=== PATIENT | male | born 1980 | race American Indian/Alaskan Native ===

== ENCOUNTER 2017-01-18 02:02 | Inpatient (IN) | payer OTHER ==
[2017-01-18 02:38] LABS: Basophils % (Auto) 0.5 % (0.0-1.8); Eosinophils % (Auto) 0.4 % (0.0-4.3); Hematocrit 41.2 % (35.5-45.6); Hemoglobin 13.6 gm/dl (11.8-15.2); Mean Corpuscular HGB Conc 33 % (32-34); Mean Corpuscular Hemoglobin 29 pg (28-32); Mean Corpuscular Volume 87 fl (84-94); Platelet Count 244 K/mm3 (140-440); Red Blood Count 4.75 M/mm3 (3.65-5.03); Red Cell Distribution Width 12.9 % (13.2-15.2); White Blood Count 14.9 K/mm3 (4.5-11.0)
[2017-01-18 03:00] LABS: Anion Gap 20 mmol/L; BUN/Creatinine Ratio 8.66; Blood Urea Nitrogen 13 mg/dL (9-20); Calcium 8.9 mg/dL (8.4-10.2); Carbon Dioxide 25 mmol/L (22-30); Chloride 100.2 mmol/L (98-107); Glucose 126 mg/dL (75-100); Potassium 4.2 mmol/L (3.6-5.0); Sodium 141 mmol/L (137-145)
[2017-01-18] MEDS ORDERED: NORMODYNE IV ONE ×2 (05:26→05:36)
[2017-01-18] MEDS ORDERED: PROVENTIL IH ONE (05:31)
[2017-01-18] MEDS ORDERED: LASIX IV ONE (05:46)
[2017-01-18] MEDS ORDERED: CATAPRES PO ONE (06:28)
--- NOTE | 2017-01-18 06:36 | Emergency Department Report ---
HPI - General Chief Complaint: Dyspnea/Respdistress Time Seen by Provider: 01/18/17 06:18 - HPI HPI: Chief complaint: Chest pain, headache, shortness of breath HPI: Patient is a 36-year-old -Malagasy male with a history of hypertension and congestive heart failure. Patient states he was admitted to [facility] 4 months ago was diagnosed with congestive heart failure. Patient states he had a cardiac catheterization at that time which he thinks was negative. Patient was put on numerous medications which he ran out of it after one month and when he tried to follow up at [place] he was unable to. Patient states 3 days ago began having chest tightness and a throbbing headache that will not go away. Patient also has swelling to his feet and some shortness of breath. Patient recently has had chills body aches and some fever but no productive cough Mode of arrival: private car Source: Patient Began: See above Duration: Continuous 3 days Context: See above Quality: Headache is throbbing and chest pain as tightness Severity: Moderate to severe Improved with: Headaches slightly better he rests his head down Worsened with: Is of breath is worse on exertion and laying flat Associated signs and symptoms: See above ED Past Medical Hx - Past Medical History Previous Medical History?: Yes Hx Hypertension: Yes Hx Congestive Heart Failure: Yes Hx Asthma: Yes - Surgical History Past Surgical History?: No - Social History Smoking Status: Current Every Day Smoker - Medications Home Medications: Home Medications Medication Instructions Recorded Confirmed Last Taken Type Amoxicillin [Trimox CAP] 500 mg PO BID #14 capsule 07/05/14 Unknown Rx Benzonatate [Tessalon Perle] 100 mg PO TID PRN #30 capsule 07/05/14 Unknown Rx Hydrochlorothiazide [Hctz] 25 mg PO QDAY #90 tablet 07/05/14 Unknown Rx amLODIPine [Norvasc] 5 mg PO DAILY #90 tab 07/05/14 Unknown Rx ED Review of Systems ROS: Stated complaint: SOB Other details as noted in HPI ROS Constitutional: fever ENT: No uri symptoms Cardiovascular: chest pain Respiratory: See HPI GI: No nausea vomiting or diarrhea : No dysuria frequency or urgency, Skin: No rash Neuro: No focal weakness or numbness Psych: No depression Uri/lymph: edema Physical Exam - Physical Exam Vital Signs: Vital Signs 01/18/17 01/18/17 01/18/17 02:18 04:48 05:16 Temperature 100.6 F H 99.7 F H Pulse Rate 99 H 97 H 105 H Pulse Rate [ Bilateral Throughout] Respiratory 26 H 24 Rate Respiratory Rate [Bilateral Throughout] Blood Pressure 235/174 229/159 O2 Sat by Pulse 97 98 Oximetry 01/18/17 01/18/17 01/18/17 05:21 05:30 05:37 Temperature Pulse Rate 96 H 88 94 H Pulse Rate [ Bilateral Throughout] Respiratory 18 16 Rate Respiratory Rate [Bilateral Throughout] Blood Pressure 242/170 223/146 258/149 O2 Sat by Pulse 97 96 Oximetry 01/18/17 01/18/17 01/18/17 05:38 05:41 05:50 Temperature Pulse Rate 86 Pulse Rate [ 88 93 H Bilateral Throughout] Respiratory 18 Rate Respiratory 18 20 Rate [Bilateral Throughout] Blood Pressure 218/149 O2 Sat by Pulse 96 Oximetry 01/18/17 01/18/17 01/18/17 05:51 06:00 06:11 Temperature Pulse Rate 87 87 89 Pulse Rate [ Bilateral Throughout] Respiratory 16 24 31 H Rate Respiratory Rate [Bilateral Throughout] Blood Pressure 218/149 188/139 188/139 O2 Sat by Pulse 99 99 96 Oximetry Physical Exam: GENERAL: The patient is an obese -Malagasy male in no acute distress on O2 by nasal cannula HEENT: Normocephalic. Atraumatic. Extraocular motions are intact. Patient has moist mucous membranes. NECK: Supple. No meningitic signs are noted. There is no adenopathy noted. CHEST/LUNGS: Clear to auscultation. There is no respiratory distress noted. HEART/CARDIOVASCULAR: Regular. There is no tachycardia. There is a gallop, no rub or murmur. ABDOMEN: Abdomen is soft, nontender. Patient has normal bowel sounds. There is no abdominal distention. SKIN: There is no rash. There is 1+ bilateral pedal edema. There is no diaphoresis. NEURO: The patient is awake, alert, and oriented. The patient is cooperative. The patient has no focal neurologic deficits. The patient has normal speech. MUSCULOSKELETAL: There is no tenderness or deformity. There is no limitation range of motion. There is no evidence of acute injury. ED Course Vital Signs 01/18/17 01/18/17 01/18/17 02:18 04:48 05:16 Temperature 100.6 F H 99.7 F H Pulse Rate 99 H 97 H 105 H Pulse Rate [ Bilateral Throughout] Respiratory 26 H 24 Rate Respiratory Rate [Bilateral Throughout] Blood Pressure 235/174 229/159 O2 Sat by Pulse 97 98 Oximetry 01/18/17 01/18/17 01/18/17 05:21 05:30 05:37 Temperature Pulse Rate 96 H 88 94 H Pulse Rate [ Bilateral Throughout] Respiratory 18 16 Rate Respiratory Rate [Bilateral Throughout] Blood Pressure 242/170 223/146 258/149 O2 Sat by Pulse 97 96 Oximetry 01/18/17 01/18/17 01/18/17 05:38 05:41 05:50 Temperature Pulse Rate 86 Pulse Rate [ 88 93 H Bilateral Throughout] Respiratory 18 Rate Respiratory 18 20 Rate [Bilateral Throughout] Blood Pressure 218/149 O2 Sat by Pulse 96 Oximetry 01/18/17 01/18/17 01/18/17 05:51 06:00 06:11 Temperature Pulse Rate 87 87 89 Pulse Rate [ Bilateral Throughout] Respiratory 16 24 31 H Rate Respiratory Rate [Bilateral Throughout] Blood Pressure 218/149 188/139 188/139 O2 Sat by Pulse 99 99 96 Oximetry - Reevaluation(s) Reevaluation #1: 01/18/17 06:42 Prior to my evaluation patient was given albuterol, Solu-Medrol, Normodyne and Lasix with some improvement to his breathing and blood pressure. Patient will be given clonidine and CT of his head and admitted to the hospitalist 01/18/17 Patient given 10 mg of IV hydralazine. ED Medical Decision Making - Lab Data Result diagrams: 01/18/17 02:29 01/18/17 02:29 Laboratory Tests 01/18/17 02:29 Calcium 8.9 Troponin T < 0.010 NT-Pro-B Natriuret Pep 1940 H - EKG Data -: EKG Interpreted by Me EKG shows normal: sinus rhythm Rate: normal (95) - EKG Data When compared to previous EKG there are: changes noted Interpretation: other (left axis deviation, LVH, lateral T wave inversion) - Radiology Data Radiology results: report reviewed (CT head within normal limits.) interpreted by me: Cardiomegaly is noted on chest x-ray Critical care attestation.: If time is entered above; I have spent that time in minutes in the direct care of this critically ill patient, excluding procedure time. ED Disposition Clinical Impression: Hypertensive urgency Disposition: OP ADMITTED IP TO THIS HOSP Is pt being admited?: Yes Condition: Stable Referrals: PRIMARY CARE,MD [Primary Care Provider] - 3-5 Days Time of Disposition: 06:36 (admit to the hospitalist)
--- NOTE | 2017-01-18 07:21 | XRay Report ---
ROUTINE CHEST, TWO VIEWS: HISTORY: Shortness of breath. The trachea, heart, mediastinal contour, lung cortez and bony thorax are unremarkable. IMPRESSION: Unremarkable chest x-ray.
[2017-01-18] MEDS ORDERED: APRESOLINE IV ONE (07:24)
--- NOTE | 2017-01-18 07:36 | Admit Criteria Form ---
Admission Criteria Documentation: HYPERTENSION Clinical Indications for Admission to Inpatient Care ( Place "X" for any and all applicable criteria): Admission is indicated for ANY ONE of the following(1)(2)(3)(4): [ ]I. Hypertensive emergency, with evidence of acute and progressing target organ disease as indicated by ANY ONE of the following: [ ]a) Hypertensive encephalopathy (eg, confusion, altered mental status) [ ]b) Cerebral infarction [ ]c) Intracranial hemorrhage [ ]d) Myocardial ischemia or infarction [ ]e) Pulmonary edema [ ]f) Aortic dissection [ ]g) Seizure [ ]h) Acute renal insufficiency [ ]i) Papilledema [ ]j) Microangiopathic hemolytic anemia [ ]II. Adrenergic crisis (eg, severe hypertension due to pheochromocytoma crisis, cocaine or amphetamine intoxication, or clonidine withdrawal) [X]III. Severe hypertension (SBP greater than 180 mmHg or DBP greater than 110 mmHg or greater than the 95th percentile for age, gender, and height in pediatric patients) that cannot be controlled (eg, to SBP less than 160 mmHg and DBP less than 100 mmHg in adults) by treatment with oral medication in emergency department or observation care Extended stay beyond goal length of stay may be needed for(11)(12)(13): [ ]a) Persistent hypertensive encephalopathy [ ]b) Continuation of pulmonary edema [ ]c) Recurring or persistent severe hypertension [ ]d) Target organ damage (eg, angina, stroke, aortic dissection) [ ]e) Associated renal insufficiency The original [employer] content created by [employer] has been revised. The portions of the content which have been revised are identified through the use of italic text or in bold, and [facility] has neither reviewed nor approved the modified material. All other unmodified content is copyright [facility]. Please see references footnoted in the original [facility] edition 2016 Admission Criteria Met: Yes
[2017-01-18] MEDS ORDERED: DULCOLAX PR PRN (07:45)
--- NOTE | 2017-01-18 07:53 | Cat Scan Report ---
CT HEAD WITHOUT CONTRAST: HISTORY: Headache, hypertension. Serial contiguous axial images were obtained through the cranium. Intravenous contrast material was not administered. The ventricles are normal in size and appearance. There is no mass effect or midline shift. No areas of abnormally increased or decreased attenuation are seen. No mass lesion is seen. The mastoid air cells and visualized portions of the sinuses are normal. IMPRESSION: Cranial CT scan within normal limits.
[2017-01-18 08:02] LABS: Bilirubin,Urine NEG (Negative); Blood,Urine NEG (Negative); Ketones,Urine NEG (Negative); Leukocyte Esterase,Urine NEG (Negative); Mucus,Urine 1+ /HPF; Nitrite,Urine NEG (Negative); Urobilinogen,Urine < 2.0 mg/dL (<2.0)
[2017-01-18] MEDS ORDERED: ASPIRIN PO ONE (08:28)
[2017-01-18] MEDS: LASIX IV SCH ×2 (08:45→22:03)
[2017-01-18] MEDS: CATAPRES PO SCH ×2 (08:56→17:05)
[2017-01-18] MEDS: APRESOLINE PO SCH ×2 (08:56→17:05)
[2017-01-18] MEDS ORDERED: MILK OF MAGNESIA PO PRN (09:00)
[2017-01-18] MEDS ORDERED: PROVENTIL IH PRN (09:00)
[2017-01-18] MEDS ORDERED: ZOFRAN IV PRN (09:00)
[2017-01-18] MEDS: DUONEB 0.5 MG-3 MG/3 ML SOLN IH SCH ×3 (09:33→19:33)
--- NOTE | 2017-01-18 11:22 | Consultation ---
History of Present Illness Consult date: 01/18/17 Consult reason: hypertension History of present illness: This is a 36yr old man who presents to this hospital with complaints of shortness of breath, fever and chills. Chest x-ray unremarkable. His ECG shows a sinus rhythm with LVH. Nonspecific ST, Twave changes. Noted hypertensive on presentation, systolic BP of 234. Patient admits to a history of hypertension but has been out of his home medications for several months. Cardiology consultation requested for hypertension management. Patient most recent cardiac workup was done at [facility] 4 months ago. He had a stress thallium that reports a dilated nonischemic cardiomyopathy , EF 33%. Cardiac MRI reports a technically difficult study. There was no regional wall motion abnormalities, EF 30-35%. Co-morbidities includes Obesity, Sleep apnea with noncompliance with his Cpap machine. Medications and Allergies Allergies Allergy/AdvReac Type Severity Reaction Status Date / Time No Known Allergies Allergy Verified 07/05/14 23:11 Home Medications Medication Instructions Recorded Confirmed Last Taken Type Albuterol Sulfate [Proair 90 mcg IH QID 01/18/17 01/18/17 Unknown History Respiclick] Budesoni/Formotero 160-4.5(Nf) 2 puff IH BID 01/18/17 01/18/17 Unknown History [Symbicort 160-4.5 (Nf)] Carvedilol [Coreg] 25 mg PO BID 01/18/17 01/18/17 Unknown History Clonidine HCl [Catapres] 0.3 mg PO TID 01/18/17 01/18/17 Unknown History Furosemide [Lasix TAB] 40 mg PO BID 01/18/17 01/18/17 Unknown History Magnesium Hydroxide [Milk of 400 mg PO DAILY PRN 01/18/17 01/18/17 Unknown History Magnesia] NIFEdipine [Nifedipine ER] 60 mg PO BID 01/18/17 01/18/17 Unknown History Potassium Chloride [K-Dur] 10 meq PO BID 01/18/17 01/18/17 Unknown History hydrALAZINE [Apresoline TAB] 100 mg PO TID 01/18/17 01/18/17 Unknown History oxyCODONE /ACETAMINOPHEN [Percocet 1 tab PO BID PRN 01/18/17 01/18/17 Unknown History 5/325] Active Meds: Active Medications Acetaminophen (Tylenol) 650 mg PO Q4H PRN PRN Reason: Pain MILD(1-3)/Fever >100.5/[place] Albuterol (Proventil) 2.5 mg IH Q4HRT PRN PRN Reason: Shortness Of Breath Albuterol/Ipratropium (Duoneb 0.5 Mg-3 Mg/3 Ml Soln) 1 ampul IH TIDRT [facility] Last Admin: 01/18/17 09:33 Dose: Not Given Amlodipine Besylate (Norvasc) 5 mg PO DAILY WENDI Bisacodyl (Dulcolax) 10 mg KS QDAY PRN PRN Reason: Constipation unrelieved by MOM Clonidine HCl (Catapres) 0.2 mg PO Q8H [facility] Last Admin: 01/18/17 08:56 Dose: 0.2 mg Furosemide (Lasix) 20 mg IV Q12H [facility] Last Admin: 01/18/17 08:45 Dose: 20 mg Heparin Sodium (Porcine) (Heparin) 5,000 unit SUB-Q Q8HR [facility] Hydralazine HCl (Apresoline) 25 mg PO Q8H [facility] Last Admin: 01/18/17 08:56 Dose: 25 mg Losartan Potassium (Cozaar) 50 mg PO DAILY [facility] Magnesium Hydroxide (Milk Of Magnesia) 30 ml PO Q4H PRN PRN Reason: Constipation Ondansetron HCl (Zofran) 4 mg IV Q8H PRN PRN Reason: N/V unrelieved by Reglan Physical Examination Vital Signs Temp Pulse Resp BP Pulse Ox 100.6 F H 99 H 26 H 235/174 97 01/18/17 02:18 01/18/17 02:18 01/18/17 02:18 01/18/17 02:18 01/18/17 02:18 General appearance: no acute distress, obese Cardiac: Positive: Reg Rate and Rhythm Lungs: Positive: Decreased Breath Sounds Neuro: Positive: Grossly Intact Results 01/18/17 02:29 01/18/17 02:29 EKG interpretations - EKG Sinus rhythms and dysrhythmias: sinus rhythm Chamber hypertrophy or enlargement: left ventricular hypertro Assessment and Plan Shortness of breath, multifactorial ROSALINA, noncompliant with Cpap therapy Obese Hypertension -uncontrolled Hx of Dilated nonischemic cardiomyopathy no ischemic on MPI 08/2016 at [facility] TDS; no RWMA, EF 30-35% on cardiac MRI 08/2016 at [facility] Noncompliant with medications
[2017-01-18] MEDS: COZAAR PO SCH (12:10)
[2017-01-18] MEDS: NORVASC PO SCH (12:10)
[2017-01-18] MEDS: HEPARIN SUB-Q SCH ×2 (15:01→21:56)
[2017-01-18] MEDS: COREG PO SCH (21:55)
[2017-01-19] MEDS: CATAPRES PO SCH ×3 (02:21→17:22)
[2017-01-19] MEDS: APRESOLINE PO SCH ×4 (02:21→21:01)
[2017-01-19] MEDS: TYLENOL PO PRN (02:25)
[2017-01-19 06:02] LABS: Basophils % (Auto) 0.2 % (0.0-1.8); Eosinophils % (Auto) 0.4 % (0.0-4.3); Hematocrit 38.5 % (35.5-45.6); Hemoglobin 12.6 gm/dl (11.8-15.2); Mean Corpuscular HGB Conc 33 % (32-34); Mean Corpuscular Hemoglobin 29 pg (28-32); Mean Corpuscular Volume 87 fl (84-94); Platelet Count 241 K/mm3 (140-440); Red Blood Count 4.42 M/mm3 (3.65-5.03); Red Cell Distribution Width 12.9 % (13.2-15.2); White Blood Count 16.7 K/mm3 (4.5-11.0)
[2017-01-19 06:15] LABS: BUN/Creatinine Ratio 12.5; Calcium 8.7 mg/dL (8.4-10.2); Chloride 100.5 mmol/L (98-107); Potassium 3.5 mmol/L (3.6-5.0)
[2017-01-19] MEDS: HEPARIN SUB-Q SCH ×3 (06:26→21:01)
[2017-01-19] MEDS: NORVASC PO SCH ×2 (08:09→11:16)
[2017-01-19] MEDS: COZAAR PO SCH ×2 (08:10→11:15)
[2017-01-19] MEDS: COREG PO SCH ×3 (08:10→21:01)
[2017-01-19] MEDS: LASIX IV SCH (08:16)
[2017-01-19] MEDS: DUONEB 0.5 MG-3 MG/3 ML SOLN IH SCH ×3 (08:23→19:36)
[2017-01-19] MEDS ORDERED: PNEUMOVAX 23 IM ONE (12:00)
[2017-01-19] MEDS ORDERED: FLUARIX QUAD 2016-2017(36 MOS+) IM ONE (12:00)
--- NOTE | 2017-01-19 13:55 | Progress Note ---
Assessment and Plan Shortness of breath, multifactorial ROSALINA, noncompliant with Cpap therapy Morbid obesity Hypertension Hx of Dilated Nonischemic cardiomyopathy no ischemia [place] [facility]compliant with medications and outpatient follow-up Recommendations: Optimal BP control. Advised compliance with medication therapy. Continue medical therapy for nonischemic cardiomyopathy. Conservative cardiac management. Subjective Date of service: 01/19/17 Interval history: Patient reports he is feeling better. Objective Vital Signs Temp Pulse Pulse Pulse Resp Resp BP 01/19/17 13:47 70 19 01/19/17 13:46 71 19 01/19/17 09:19 01/19/17 08:24 69 18 01/19/17 08:20 97.8 F 74 20 01/19/17 08:00 69 18 01/19/17 05:45 98.4 F 84 18 01/19/17 02:21 92 H 142/90 01/19/17 01:31 92 H 01/19/17 00:30 99.0 F 97 H 18 01/18/17 21:55 95 H 143/96 01/18/17 20:00 99.0 F 95 H 18 01/18/17 19:48 97 H 20 01/18/17 19:35 99 H 20 01/18/17 17:30 98.0 F 22 L 0 L 01/18/17 13:53 87 20 BP Pulse Ox 01/19/17 13:47 01/19/17 13:46 01/19/17 09:19 98 01/19/17 08:24 01/19/17 08:20 184/111 96 01/19/17 08:00 01/19/17 05:45 181/109 96 01/19/17 02:21 01/19/17 01:31 01/19/17 00:30 142/90 94 01/18/17 21:55 01/18/17 20:00 143/96 95 01/18/17 19:48 01/18/17 19:35 01/18/17 17:30 140/95 94 01/18/17 13:53 - Physical Examination General: No Apparent Distress HEENT: Positive: PERRL Neck: Positive: trachea midline Cardiac: Positive: Reg Rate and Rhythm Lungs: Positive: Decreased Breath Sounds Neuro: Positive: Grossly Intact Extremities: Absent: edema - Labs and Meds CBC 01/19/17 Range/Units 05:13 WBC 16.7 H (4.5-11.0) K/mm3 RBC 4.42 (3.65-5.03) M/mm3 Hgb 12.6 (11.8-15.2) gm/dl Hct 38.5 (35.5-45.6) % Plt Count 241 (140-440) K/mm3 Lymph # 1.4 (1.2-5.4) K/mm3 [place] # 1.9 H (0.0-0.8) K/mm3 Eos # 0.1 (0.0-0.4) K/mm3 Baso # 0.0 (0.0-0.1) K/mm3 Comprehensive Metabolic Panel 01/19/17 Range/Units 05:13 Sodium 141 (137-145) mmol/L Potassium 3.5 L (3.6-5.0) mmol/L Chloride 100.5 (98-107) mmol/L Carbon Dioxide 22 (22-30) mmol/L BUN 25 H (9-20) mg/dL Creatinine 2.0 H (0.8-1.5) mg/dL Glucose 121 H (75-100) mg/dL Calcium 8.7 (8.4-10.2) mg/dL - EKG Sinus rhythms and dysrhythmias: sinus rhythm Chamber hypertrophy or enlargement: left ventricular hypertro
--- NOTE | 2017-01-19 16:13 | Progress Note ---
Assessment and Plan - Patient Problems (1) Hypertensive urgency Current Visit: Yes Status: Acute Plan to address problem: improving . Still high Adjust medication Increase hydralazine to 50 mg (2) Acute renal failure Current Visit: Yes Status: Acute Qualifiers: Acute renal failure type: unspecified Qualified Code(s): N17.9 - Acute kidney failure, unspecified Plan to address problem: most likely diuretic induced Hold lasix recheck BMP in AM Renal consult if there is worsening of the creatinine (3) Neutrophilic leukocytosis Current Visit: Yes Status: Acute Plan to address problem: ? steroid indiced Off solumedrol( just had one injection) monitor cbc no focus of infection (4) ROSALINA (obstructive sleep apnea) Current Visit: Yes Status: Chronic Plan to address problem: cont. CPAP at night Subjective Date of service: 01/19/17 Interval history: no complaints. Staes he slept well with CPAP BP still high Objective - Constitutional Vitals: Vital Signs - 12hr 01/19/17 01/19/17 01/19/17 05:45 08:00 08:20 Temperature 98.4 F 97.8 F Pulse Rate [ 69 Bilateral Throughout] Pulse Rate [ 84 74 Right Radial] Respiratory 18 20 Rate Respiratory 18 Rate [Bilateral Throughout] Blood Pressure 181/109 184/111 [Right Arm] O2 Sat by Pulse 96 96 Oximetry 01/19/17 01/19/17 01/19/17 08:24 09:19 13:46 Temperature Pulse Rate [ 69 71 Bilateral Throughout] Pulse Rate [ Right Radial] Respiratory Rate Respiratory 18 19 Rate [Bilateral Throughout] Blood Pressure [Right Arm] O2 Sat by Pulse 98 Oximetry 01/19/17 13:47 Temperature Pulse Rate [ 70 Bilateral Throughout] Pulse Rate [ Right Radial] Respiratory Rate Respiratory 19 Rate [Bilateral Throughout] Blood Pressure [Right Arm] O2 Sat by Pulse Oximetry General appearance: Present: no acute distress - EENT Eyes: PERRL, EOM intact ENT: hearing intact, clear oral mucosa - Neck Neck: supple, normal ROM - Respiratory Respiratory effort: normal Respiratory: bilateral: CTA - Cardiovascular Rhythm: regular Heart Sounds: Present: S1 & S2 Extremities: No edema - Gastrointestinal General gastrointestinal: Present: soft, non-tender - Integumentary Integumentary: clear - Musculoskeletal Musculoskeletal: strength equal bilaterally - Neurologic Neurologic: no focal deficits - Labs CBC & Chem 7: 01/19/17 05:13 01/19/17 05:13 Labs: Abnormal lab results 01/18/17 01/18/17 01/19/17 Range/Units 17:38 21:44 05:13 WBC 16.7 H (4.5-11.0) K/mm3 RDW 12.9 L (13.2-15.2) % Lymph % (Auto) 8.3 L (13.4-35.0) % [place] % (Auto) 11.3 H (0.0-7.3) % [place] # 1.9 H (0.0-0.8) K/mm3 Seg Neutrophils % 79.8 H (40.0-70.0) % Seg Neutrophils # 13.4 H (1.8-7.7) K/mm3 Potassium (3.6-5.0) mmol/L BUN (9-20) mg/dL Creatinine (0.8-1.5) mg/dL Glucose (75-100) mg/dL POC Glucose 134 H 147 H (70-105) 01/19/17 Range/Units 05:13 WBC (4.5-11.0) K/mm3 RDW (13.2-15.2) % Lymph % (Auto) (13.4-35.0) % [place] % (Auto) (0.0-7.3) % [place] # (0.0-0.8) K/mm3 Seg Neutrophils % (40.0-70.0) % Seg Neutrophils # (1.8-7.7) K/mm3 Potassium 3.5 L (3.6-5.0) mmol/L BUN 25 H (9-20) mg/dL Creatinine 2.0 H (0.8-1.5) mg/dL Glucose 121 H (75-100) mg/dL POC Glucose (70-105)
--- NOTE | 2017-01-19 16:31 | History and Physical Report ---
History of Present Illness Date of examination: 01/18/17 Date of admission: 01/18/17 07:46 Chief complaint: Severe headache and worsening shortness of breath for 2 days History of present illness: 36-year-old moderately obese -F[place] male history of hypertension and ROSALINA who has not taken any medication for at least several weeks, presents to the emergency room with complaints of severe headache and increasing shortness of breath. He was noted to be severely hypertensive the blood pressure of 250/ 170 he is now admitted for management of hypertensive emergency He is otherwise awake and alert. Also complains of some chest tightness associated with shortness of breath. He says he has not been using CPAP machine His blood pressure improved to around 190 systolic with IV medications and he was admitted to telemetry floor for further management He says he had stress test at [facility] [place] 4 months ago details not available at the time of my examination Past History Past Medical History: heart failure, hypertension, other (ROSALINA and asthma) Past Surgical History: No surgical history Social history: no significant social history Family history: diabetes, hypertension Medications and Allergies Allergies Allergy/AdvReac Type Severity Reaction Status Date / Time No Known Allergies Allergy Verified 07/05/14 23:11 Home Medications Medication Instructions Recorded Confirmed Last Taken Type Albuterol Sulfate [Proair 90 mcg IH QID 01/18/17 01/18/17 Unknown History Respiclick] Budesoni/Formotero 160-4.5(Nf) 2 puff IH BID 01/18/17 01/18/17 Unknown History [Symbicort 160-4.5 (Nf)] Carvedilol [Coreg] 25 mg PO BID 01/18/17 01/18/17 Unknown History Clonidine HCl [Catapres] 0.3 mg PO TID 01/18/17 01/18/17 Unknown History Furosemide [Lasix TAB] 40 mg PO BID 01/18/17 01/18/17 Unknown History Magnesium Hydroxide [Milk of 400 mg PO DAILY PRN 01/18/17 01/18/17 Unknown History Magnesia] NIFEdipine [Nifedipine ER] 60 mg PO BID 01/18/17 01/18/17 Unknown History Potassium Chloride [K-Dur] 10 meq PO BID 01/18/17 01/18/17 Unknown History hydrALAZINE [Apresoline TAB] 100 mg PO TID 01/18/17 01/18/17 Unknown History oxyCODONE /ACETAMINOPHEN [Percocet 1 tab PO BID PRN 01/18/17 01/18/17 Unknown History 5/325] Active Meds: Active Medications Acetaminophen (Tylenol) 650 mg PO Q4H PRN PRN Reason: Pain MILD(1-3)/Fever >100.5/[place] Last Admin: 01/19/17 02:25 Dose: 650 mg Albuterol (Proventil) 2.5 mg IH Q4HRT PRN PRN Reason: Shortness Of Breath Albuterol/Ipratropium (Duoneb 0.5 Mg-3 Mg/3 Ml Soln) 1 ampul IH TIDRT [facility] Last Admin: 01/19/17 13:46 Dose: 1 ampul Amlodipine Besylate (Norvasc) 5 mg PO DAILY [facility] Last Admin: 01/19/17 11:16 Dose: Not Given Bisacodyl (Dulcolax) 10 mg ME QDAY PRN PRN Reason: Constipation unrelieved by MOM Carvedilol (Coreg) 6.25 mg PO BID [facility] Last Admin: 01/19/17 11:15 Dose: Not Given Clonidine HCl (Catapres) 0.2 mg PO Q8H [facility] Last Admin: 01/19/17 08:43 Dose: 0.2 mg Heparin Sodium (Porcine) (Heparin) 5,000 unit SUB-Q Q8HR [facility] Last Admin: 01/19/17 15:15 Dose: 5,000 unit Hydralazine HCl (Apresoline) 50 mg PO Q8HR [facility] Losartan Potassium (Cozaar) 50 mg PO DAILY [facility] Last Admin: 01/19/17 11:15 Dose: Not Given Magnesium Hydroxide (Milk Of Magnesia) 30 ml PO Q4H PRN PRN Reason: Constipation Ondansetron HCl (Zofran) 4 mg IV Q8H PRN PRN Reason: N/V unrelieved by Reglan Review of Systems Constitutional: no weight loss, no weight gain, no fever, no chills Ears, nose, mouth and throat: headache Cardiovascular: shortness of breath, high blood pressure, no chest pain, no orthopnea, no palpitations, no syncope, no paroxysmal nocturnal dyspnea Respiratory: shortness of breath, dyspnea on exertion, no cough, no wheezing Gastrointestinal: no abdominal pain, no nausea, no vomiting, no diarrhea, no constipation, no melena, no loss of appetite Genitourinary Male: no dysuria, no hematuria, no flank pain, no urinary frequency, no urinary hesitancy Rectal: no pain Musculoskeletal: no neck pain, no low back pain Integumentary: no rash Neurological: no seizures, no syncope Exam - Constitutional Vitals: Temp Pulse Resp BP Pulse Ox 98.0 F 79 20 150/95 97 01/19/17 16:17 01/19/17 16:17 01/19/17 16:17 01/19/17 16:17 01/19/17 16:17 General appearance: Present: mild distress - EENT Eyes: Present: PERRL, EOM intact ENT: hearing intact, clear oral mucosa - Neck Neck: Present: supple, normal ROM. Absent: masses or JVD - Respiratory Respiratory effort: normal Respiratory: bilateral: CTA, diminished - Cardiovascular Rhythm: regular Heart Sounds: Present: S1 & S2 - Extremities Extremities: No edema - Abdominal General gastrointestinal: Present: soft, non-tender. Absent: hepatomegaly, splenomegaly - Rectal Rectal Exam: deferred - Integumentary Integumentary: Present: clear - Musculoskeletal Musculoskeletal: strength equal bilaterally - Psychiatric Psychiatric: appropriate mood/affect - Neurologic Neurologic: CNII-XII intact, no focal deficits Results - Labs CBC & Chem 7: 01/19/17 05:13 01/19/17 05:13 Labs: Abnormal lab results 01/18/17 01/18/17 01/19/17 Range/Units 17:38 21:44 05:13 WBC 16.7 H (4.5-11.0) K/mm3 RDW 12.9 L (13.2-15.2) % Lymph % (Auto) 8.3 L (13.4-35.0) % [place] % (Auto) 11.3 H (0.0-7.3) % [place] # 1.9 H (0.0-0.8) K/mm3 Seg Neutrophils % 79.8 H (40.0-70.0) % Seg Neutrophils # 13.4 H (1.8-7.7) K/mm3 Potassium (3.6-5.0) mmol/L BUN (9-20) mg/dL Creatinine (0.8-1.5) mg/dL Glucose (75-100) mg/dL POC Glucose 134 H 147 H (70-105) 01/19/17 Range/Units 05:13 WBC (4.5-11.0) K/mm3 RDW (13.2-15.2) % Lymph % (Auto) (13.4-35.0) % [place] % (Auto) (0.0-7.3) % [place] # (0.0-0.8) K/mm3 Seg Neutrophils % (40.0-70.0) % Seg Neutrophils # (1.8-7.7) K/mm3 Potassium 3.5 L (3.6-5.0) mmol/L BUN 25 H (9-20) mg/dL Creatinine 2.0 H (0.8-1.5) mg/dL Glucose 121 H (75-100) mg/dL POC Glucose (70-105) Assessment and Plan - Patient Problems (1) Hypertensive urgency Current Visit: Yes Status: Acute Plan to address problem: Patient was started on multiple antihypertensive medications including clonidine , calcium channel blockers and hydralazine and intravenous diuretics Isn't his blood pressure is still high but its less than 200/100 We will request a cardiology consult as the details of his stress test and his cardiac status is not known (2) RSOALINA (obstructive sleep apnea) Current Visit: Yes Status: Chronic Plan to address problem: Continue CPAP at night (3) Headache Current Visit: Yes Status: Acute Qualifiers: Headache type: H Headache chronicity pattern: H Intractability: I Plan to address problem: Most likely secondary to severe hypertension He described of the head shows no acute findings We will place the patient on [place] when necessary
[2017-01-20] MEDS: CATAPRES PO SCH ×3 (01:10→23:10)
[2017-01-20] MEDS: APRESOLINE PO SCH ×3 (05:37→22:14)
[2017-01-20] MEDS: HEPARIN SUB-Q SCH ×3 (05:37→22:14)
[2017-01-20 05:41] LABS: Hematocrit 39.4 % (35.5-45.6); Hemoglobin 12.8 gm/dl (11.8-15.2); Mean Corpuscular HGB Conc 32 % (32-34); Mean Corpuscular Hemoglobin 29 pg (28-32); Mean Corpuscular Volume 88 fl (84-94); Platelet Count 247 K/mm3 (140-440); Red Blood Count 4.46 M/mm3 (3.65-5.03); Red Cell Distribution Width 13.2 % (13.2-15.2); White Blood Count 10.1 K/mm3 (4.5-11.0)
[2017-01-20 05:55] LABS: BUN/Creatinine Ratio 13.88; Calcium 8.5 mg/dL (8.4-10.2)
[2017-01-20 06:04] LABS: Potassium 4.6 mmol/L (3.6-5.0)
[2017-01-20] MEDS: DUONEB 0.5 MG-3 MG/3 ML SOLN IH SCH ×3 (08:45→21:00)
--- NOTE | 2017-01-20 10:31 | Progress Note ---
Assessment and Plan - Patient Problems (1) Acute kidney injury Current Visit: Yes Status: Acute Plan to address problem: Continue half-normal saline. We will get nephrology consult (2) Hypertensive urgency Current Visit: Yes Status: Acute Plan to address problem: Blood pressure better controlled today. We will titrate blood pressure meds up (3) ROSALINA (obstructive sleep apnea) Current Visit: Yes Status: Chronic Plan to address problem: Continue CPAP at night History Interval history: Patient lying in bed state that he feels okay Hospitalist Physical - Constitutional Vitals: Temp Pulse Resp BP Pulse Ox 97.5 F L 78 20 174/102 100 01/20/17 07:48 01/20/17 08:56 01/20/17 08:56 01/20/17 07:48 01/20/17 08:57 General appearance: Present: mild distress - EENT Eyes: Present: PERRL, EOM intact ENT: hearing intact - Neck Neck: Present: supple, normal ROM - Respiratory Respiratory effort: normal Respiratory: bilateral: CTA - Cardiovascular Rhythm: regular Heart Sounds: Present: S1 & S2 - Extremities Extremities: no ischemia, No edema - Abdominal General gastrointestinal: soft, non-tender, non-distended, normal bowel sounds - Psychiatric Psychiatric: appropriate mood/affect, intact judgment & insight - Neurologic Neurologic: CNII-XII intact, moves all extremities Results - Labs CBC & Chem 7: 01/20/17 05:04 01/20/17 05:04 Labs: Laboratory Last Values WBC 10.1 K/mm3 (4.5-11.0) 01/20/17 05:04 RBC 4.46 M/mm3 (3.65-5.03) 01/20/17 05:04 Hgb 12.8 gm/dl (11.8-15.2) 01/20/17 05:04 Hct 39.4 % (35.5-45.6) 01/20/17 05:04 MCV 88 fl (84-94) 01/20/17 05:04 MCH 29 pg (28-32) 01/20/17 05:04 MCHC 32 % (32-34) 01/20/17 05:04 RDW 13.2 % (13.2-15.2) 01/20/17 05:04 Plt Count 247 K/mm3 (140-440) 01/20/17 05:04 Lymph % (Auto) 8.3 % (13.4-35.0) L 01/19/17 05:13 [place] % (Auto) 11.3 % (0.0-7.3) H 01/19/17 05:13 Eos % (Auto) 0.4 % (0.0-4.3) 01/19/17 05:13 Baso % (Auto) 0.2 % (0.0-1.8) 01/19/17 05:13 Lymph # 1.4 K/mm3 (1.2-5.4) 01/19/17 05:13 [place] # 1.9 K/mm3 (0.0-0.8) H 01/19/17 05:13 Eos # 0.1 K/mm3 (0.0-0.4) 01/19/17 05:13 Baso # 0.0 K/mm3 (0.0-0.1) 01/19/17 05:13 Seg Neutrophils % 79.8 % (40.0-70.0) H 01/19/17 05:13 Seg Neutrophils # 13.4 K/mm3 (1.8-7.7) H 01/19/17 05:13 Sodium 138 mmol/L (137-145) 01/20/17 05:04 Potassium 4.6 mmol/L (3.6-5.0) D 01/20/17 05:04 Chloride 101.0 mmol/L (98-107) 01/20/17 05:04 Carbon Dioxide 24 mmol/L (22-30) 01/20/17 05:04 Anion Gap 18 mmol/L 01/20/17 05:04 BUN 25 mg/dL (9-20) H 01/20/17 05:04 Creatinine 1.8 mg/dL (0.8-1.5) H 01/20/17 05:04 Estimated GFR 53 ml/min 01/20/17 05:04 BUN/Creatinine Ratio 13.88 % 01/20/17 05:04 Glucose 94 mg/dL (75-100) 01/20/17 05:04 POC Glucose 147 (70-105) H 01/19/17 21:45 Calcium 8.5 mg/dL (8.4-10.2) 01/20/17 05:04 Troponin T < 0.010 ng/mL (0.00-0.029) 01/18/17 02:29 NT-Pro-B Natriuret Pep 1940 pg/mL (0-450) H 01/18/17 02:29 Urine Color Yellow (Yellow) 01/18/17 06:33 Urine Turbidity Clear (Clear) 01/18/17 06:33 Urine pH 6.0 (5.0-7.0) 01/18/17 06:33 Ur Specific [place] 1.014 (1.003-1.030) 01/18/17 06:33 Urine Protein 100 mg/dl mg/dL (Negative) 01/18/17 06:33 Urine Glucose (UA) Neg mg/dL (Negative) 01/18/17 06:33 Urine Ketones Neg mg/dL (Negative) 01/18/17 06:33 Urine Blood Neg (Negative) 01/18/17 06:33 Urine Nitrite Neg (Negative) 01/18/17 06:33 Urine Bilirubin Neg (Negative) 01/18/17 06:33 Urine Urobilinogen < 2.0 mg/dL (<2.0) 01/18/17 06:33 Ur Leukocyte Esterase Neg (Negative) 01/18/17 06:33 Urine WBC (Auto) 1.0 /HPF (0.0-6.0) 01/18/17 06:33 Urine RBC (Auto) 1.0 /HPF (0.0-6.0) 01/18/17 06:33 U Epithel Cells (Auto) < 1.0 /HPF (0-13.0) 01/18/17 06:33 Urine Mucus 1+ /HPF 01/18/17 06:33
--- NOTE | 2017-01-20 10:37 | Progress Note ---
Assessment and Plan Shortness of breath, multifactorial ROSALINA, noncompliant with Cpap therapy Morbid obesity Systolic heart failure Hypertension Hx of Dilated Nonischemic cardiomyopathy no ischemia on MPI 08/2016 at [facility] [place] Noncompliant with medications and outpatient follow-up Recommendations: Optimal BP control. Advised compliance with medication therapy and dietary restrictions. Continue medical therapy for nonischemic cardiomyopathy. Conservative cardiac management. Subjective Date of service: 01/20/17 Interval history: Patient reports he is feeling better. He denies shortness of breath. Objective Vital Signs Temp Pulse Pulse Pulse Pulse Resp Resp 01/20/17 08:57 01/20/17 08:56 78 20 01/20/17 08:45 83 20 01/20/17 07:48 97.5 F L 78 20 01/20/17 05:53 97.5 F L 69 18 01/20/17 01:14 97.5 F L 68 18 01/19/17 22:00 88 01/19/17 20:35 98.0 F 74 18 01/19/17 19:52 80 01/19/17 19:38 01/19/17 19:37 78 01/19/17 16:17 98.0 F 79 20 01/19/17 13:47 70 01/19/17 13:46 71 01/19/17 12:00 97.6 F 75 20 01/19/17 11:00 60 Resp BP Pulse Ox 01/20/17 08:57 100 01/20/17 08:56 01/20/17 08:45 01/20/17 07:48 174/102 100 01/20/17 05:53 163/105 98 01/20/17 01:14 154/105 97 01/19/17 22:00 95 01/19/17 20:35 144/97 98 01/19/17 19:52 18 01/19/17 19:38 100 01/19/17 19:37 18 01/19/17 16:17 150/95 97 01/19/17 13:47 19 01/19/17 13:46 19 01/19/17 12:00 174/115 97 01/19/17 11:00 - Physical Examination General: No Apparent Distress, Other (obese) HEENT: Positive: PERRL Neck: Positive: trachea midline Cardiac: Positive: Reg Rate and Rhythm Lungs: Positive: Decreased Breath Sounds Neuro: Positive: Grossly Intact Extremities: Absent: edema - Labs and Meds CBC 01/20/17 Range/Units 05:04 WBC 10.1 (4.5-11.0) K/mm3 RBC 4.46 (3.65-5.03) M/mm3 Hgb 12.8 (11.8-15.2) gm/dl Hct 39.4 (35.5-45.6) % Plt Count 247 (140-440) K/mm3 Comprehensive Metabolic Panel 01/20/17 Range/Units 05:04 Sodium 138 (137-145) mmol/L Potassium 4.6 D (3.6-5.0) mmol/L Chloride 101.0 (98-107) mmol/L Carbon Dioxide 24 (22-30) mmol/L BUN 25 H (9-20) mg/dL Creatinine 1.8 H (0.8-1.5) mg/dL Glucose 94 (75-100) mg/dL Calcium 8.5 (8.4-10.2) mg/dL - EKG Sinus rhythms and dysrhythmias: sinus rhythm Chamber hypertrophy or enlargement: left ventricular hypertro
[2017-01-20] MEDS: NORVASC PO SCH (11:12)
[2017-01-20] MEDS: COZAAR PO SCH (11:13)
[2017-01-20] MEDS: COREG PO SCH ×2 (11:13→22:14)
[2017-01-21] MEDS: CATAPRES PO SCH ×4 (00:56→21:27)
[2017-01-21 05:05] LABS: Basophils % (Auto) 0.7 % (0.0-1.8); Eosinophils % (Auto) 2.8 % (0.0-4.3); Hematocrit 38.1 % (35.5-45.6); Hemoglobin 12.6 gm/dl (11.8-15.2); Mean Corpuscular HGB Conc 33 % (32-34); Mean Corpuscular Hemoglobin 29 pg (28-32); Mean Corpuscular Volume 88 fl (84-94); Platelet Count 270 K/mm3 (140-440); Red Blood Count 4.34 M/mm3 (3.65-5.03); Red Cell Distribution Width 12.9 % (13.2-15.2)
[2017-01-21 05:27] LABS: Alanine Aminotransferase 11 units/L (7-56); Albumin 3.7 g/dL (3.9-5); Albumin/Globulin Ratio 1.4 %; Alkaline Phosphatase 75 units/L (35-129); Anion Gap 20 mmol/L; BUN/Creatinine Ratio 13.75; Bilirubin,Total 0.3 mg/dL (0.1-1.2); Blood Urea Nitrogen 22 mg/dL (9-20); Calcium 8.3 mg/dL (8.4-10.2); Carbon Dioxide 23 mmol/L (22-30); Chloride 101.6 mmol/L (98-107); Glucose 103 mg/dL (75-100); Sodium 141 mmol/L (137-145); Total Protein 6.4 g/dL (6.3-8.2)
[2017-01-21] MEDS: HEPARIN SUB-Q SCH ×3 (05:59→21:29)
[2017-01-21] MEDS: APRESOLINE PO SCH ×3 (05:59→21:26)
[2017-01-21] MEDS: DUONEB 0.5 MG-3 MG/3 ML SOLN IH SCH ×3 (07:10→20:35)
[2017-01-21] MEDS: NORVASC PO SCH (10:02)
[2017-01-21] MEDS: COZAAR PO SCH (10:03)
[2017-01-21] MEDS: COREG PO SCH ×3 (10:03→21:25)
--- NOTE | 2017-01-21 10:27 | Progress Note ---
Assessment and Plan - Patient Problems (1) Acute kidney injury Current Visit: Yes Status: Acute Plan to address problem: Continue half-normal saline. Nephrology consult in progress (2) Hypertensive urgency Current Visit: Yes Status: Acute Plan to address problem: Blood pressure still not controlled. We will titrate blood pressure meds up (3) ROSALINA (obstructive sleep apnea) Current Visit: Yes Status: Chronic Plan to address problem: Continue CPAP at night History Interval history: Patient lying in bed state that he feels okay. Patient denies any headache no chest pain Hospitalist Physical - Constitutional Vitals: Temp Pulse Resp BP Pulse Ox 98.2 F 84 20 181/123 96 01/21/17 08:00 01/21/17 08:00 01/21/17 08:00 01/21/17 08:00 01/21/17 08:00 General appearance: Present: no acute distress - EENT Eyes: Present: PERRL, EOM intact ENT: hearing intact, clear oral mucosa - Neck Neck: Present: supple, normal ROM - Respiratory Respiratory effort: normal Respiratory: bilateral: CTA - Cardiovascular Rhythm: regular Heart Sounds: Present: S1 & S2 - Abdominal General gastrointestinal: soft, non-tender, non-distended, normal bowel sounds - Psychiatric Psychiatric: appropriate mood/affect, intact judgment & insight - Neurologic Neurologic: CNII-XII intact, moves all extremities Results - Labs CBC & Chem 7: 01/21/17 03:45 01/21/17 03:45 Labs: Laboratory Last Values WBC 9.0 K/mm3 (4.5-11.0) 01/21/17 03:45 RBC 4.34 M/mm3 (3.65-5.03) 01/21/17 03:45 Hgb 12.6 gm/dl (11.8-15.2) 01/21/17 03:45 Hct 38.1 % (35.5-45.6) 01/21/17 03:45 MCV 88 fl (84-94) 01/21/17 03:45 MCH 29 pg (28-32) 01/21/17 03:45 MCHC 33 % (32-34) 01/21/17 03:45 RDW 12.9 % (13.2-15.2) L 01/21/17 03:45 Plt Count 270 K/mm3 (140-440) 01/21/17 03:45 Lymph % (Auto) 21.9 % (13.4-35.0) 01/21/17 03:45 [place] % (Auto) 9.5 % (0.0-7.3) H 01/21/17 03:45 Eos % (Auto) 2.8 % (0.0-4.3) 01/21/17 03:45 Baso % (Auto) 0.7 % (0.0-1.8) 01/21/17 03:45 Lymph # 2.0 K/mm3 (1.2-5.4) 01/21/17 03:45 [place] # 0.9 K/mm3 (0.0-0.8) H 01/21/17 03:45 Eos # 0.2 K/mm3 (0.0-0.4) 01/21/17 03:45 Baso # 0.1 K/mm3 (0.0-0.1) 01/21/17 03:45 Seg Neutrophils % 65.1 % (40.0-70.0) 01/21/17 03:45 Seg Neutrophils # 5.9 K/mm3 (1.8-7.7) 01/21/17 03:45 Sodium 141 mmol/L (137-145) 01/21/17 03:45 Potassium 4.0 mmol/L (3.6-5.0) 01/21/17 03:45 Chloride 101.6 mmol/L (98-107) 01/21/17 03:45 Carbon Dioxide 23 mmol/L (22-30) 01/21/17 03:45 Anion Gap 20 mmol/L 01/21/17 03:45 BUN 22 mg/dL (9-20) H 01/21/17 03:45 Creatinine 1.6 mg/dL (0.8-1.5) H 01/21/17 03:45 Estimated GFR > 60 ml/min 01/21/17 03:45 BUN/Creatinine Ratio 13.75 % 01/21/17 03:45 Glucose 103 mg/dL (75-100) H 01/21/17 03:45 POC Glucose 118 (70-105) H 01/20/17 21:06 Calcium 8.3 mg/dL (8.4-10.2) L 01/21/17 03:45 Total Bilirubin 0.3 mg/dL (0.1-1.2) 01/21/17 03:45 AST 10 units/L (5-40) 01/21/17 03:45 ALT 11 units/L (7-56) 01/21/17 03:45 Alkaline Phosphatase 75 units/L (35-129) 01/21/17 03:45 Troponin T < 0.010 ng/mL (0.00-0.029) 01/18/17 02:29 NT-Pro-B Natriuret Pep 1940 pg/mL (0-450) H 01/18/17 02:29 Total Protein 6.4 g/dL (6.3-8.2) 01/21/17 03:45 Albumin 3.7 g/dL (3.9-5) L 01/21/17 03:45 Albumin/Globulin Ratio 1.4 % 01/21/17 03:45 Urine Color Yellow (Yellow) 01/18/17 06:33 Urine Turbidity Clear (Clear) 01/18/17 06:33 Urine pH 6.0 (5.0-7.0) 01/18/17 06:33 Ur Specific [place] 1.014 (1.003-1.030) 01/18/17 06:33 Urine Protein 100 mg/dl mg/dL (Negative) 01/18/17 06:33 Urine Glucose (UA) Neg mg/dL (Negative) 01/18/17 06:33 Urine Ketones Neg mg/dL (Negative) 01/18/17 06:33 Urine Blood Neg (Negative) 01/18/17 06:33 Urine Nitrite Neg (Negative) 01/18/17 06:33 Urine Bilirubin Neg (Negative) 01/18/17 06:33 Urine Urobilinogen < 2.0 mg/dL (<2.0) 01/18/17 06:33 Ur Leukocyte Esterase Neg (Negative) 01/18/17 06:33 Urine WBC (Auto) 1.0 /HPF (0.0-6.0) 01/18/17 06:33 Urine RBC (Auto) 1.0 /HPF (0.0-6.0) 01/18/17 06:33 U Epithel Cells (Auto) < 1.0 /HPF (0-13.0) 01/18/17 06:33 Urine Mucus 1+ /HPF 01/18/17 06:33
--- NOTE | 2017-01-21 10:39 | Consultation ---
History of Present Illness - Reason for Consult Consult date: 01/21/17 acute renal failure, chronic renal failure - History of Present Illness Patient is a 36 year old AAM with history significant for Morbid obesity, poorly controlled hypertension, ROSALINA, systolic CHF, CKD stage 2 and medical non- compliance who has not taken any medication for the past several weeks, presents to the emergency room with complaints of severe headache and increasing shortness of breath. Patient also complains of chest tightness and shortness of breath. His initial BP was noted to be around 250/170. His baseline creatinine is around 1.5. His creatinine peaked at 2 and it is trending down. Patient is not followed by any physician. Past History Past Medical History: heart failure, hypertension, other (ROSALINA and asthma) Past Surgical History: No surgical history Social history: no significant social history Family history: diabetes, hypertension Medications and Allergies Allergies Allergy/AdvReac Type Severity Reaction Status Date / Time No Known Allergies Allergy Verified 07/05/14 23:11 Home Medications Medication Instructions Recorded Confirmed Last Taken Type Albuterol Sulfate [Proair 90 mcg IH QID 01/18/17 01/18/17 Unknown History Respiclick] Budesoni/Formotero 160-4.5(Nf) 2 puff IH BID 01/18/17 01/18/17 Unknown History [Symbicort 160-4.5 (Nf)] Carvedilol [Coreg] 25 mg PO BID 01/18/17 01/18/17 Unknown History Clonidine HCl [Catapres] 0.3 mg PO TID 01/18/17 01/18/17 Unknown History Furosemide [Lasix TAB] 40 mg PO BID 01/18/17 01/18/17 Unknown History Magnesium Hydroxide [Milk of 400 mg PO DAILY PRN 01/18/17 01/18/17 Unknown History Magnesia] NIFEdipine [Nifedipine ER] 60 mg PO BID 01/18/17 01/18/17 Unknown History Potassium Chloride [K-Dur] 10 meq PO BID 01/18/17 01/18/17 Unknown History hydrALAZINE [Apresoline TAB] 100 mg PO TID 01/18/17 01/18/17 Unknown History oxyCODONE /ACETAMINOPHEN [Percocet 1 tab PO BID PRN 01/18/17 01/18/17 Unknown History 5/325] Active Meds: Active Medications Acetaminophen (Tylenol) 650 mg PO Q4H PRN PRN Reason: Pain MILD(1-3)/Fever >100.5/[place] Last Admin: 01/19/17 02:25 Dose: 650 mg Albuterol (Proventil) 2.5 mg IH Q4HRT PRN PRN Reason: Shortness Of Breath Albuterol/Ipratropium (Duoneb 0.5 Mg-3 Mg/3 Ml Soln) 1 ampul IH TIDRT [facility] Last Admin: 01/21/17 07:10 Dose: 1 ampul Amlodipine Besylate (Norvasc) 10 mg PO DAILY [facility] Last Admin: 01/21/17 10:02 Dose: 10 mg Bisacodyl (Dulcolax) 10 mg MA QDAY PRN PRN Reason: Constipation unrelieved by MOM Carvedilol (Coreg) 6.25 mg PO BID [facility] Last Admin: 01/21/17 10:03 Dose: 6.25 mg Clonidine HCl (Catapres) 0.2 mg PO Q8H [facility] Last Admin: 01/21/17 00:56 Dose: Not Given Heparin Sodium (Porcine) (Heparin) 5,000 unit SUB-Q Q8HR [facility] Last Admin: 01/21/17 05:59 Dose: 5,000 unit Hydralazine HCl (Apresoline) 50 mg PO Q8HR [facility] Last Admin: 01/21/17 05:59 Dose: 50 mg Losartan Potassium (Cozaar) 100 mg PO DAILY [facility] Last Admin: 01/21/17 10:03 Dose: 100 mg Magnesium Hydroxide (Milk Of Magnesia) 30 ml PO Q4H PRN PRN Reason: Constipation Ondansetron HCl (Zofran) 4 mg IV Q8H PRN PRN Reason: N/V unrelieved by Reglan Review of Systems Constitutional: no weight loss, no weight gain, no fever, no anorexia, no weakness Ears, nose, mouth and throat: no sinus pain, no epistaxis Cardiovascular: chest pain, orthopnea, shortness of breath, high blood pressure , no edema, no syncope, no lightheadedness, no leg edema Respiratory: shortness of breath, dyspnea on exertion, no hemoptysis Gastrointestinal: no abdominal pain, no nausea, no vomiting, no melena Genitourinary Male: no dysuria, no hematuria Musculoskeletal: no morning stiffness, no frequent falls Integumentary: no rash, no jaundice Neurological: no paralysis, no seizures, no syncope Hematologic/Lymphatic: no easy bruising, no easy bleeding Allergic/Immunologic: no urticaria Exam - Vital Signs Vital signs: Vital Signs Temp Pulse Resp BP Pulse Ox 100.6 F H 99 H 26 H 235/174 97 01/18/17 02:18 01/18/17 02:18 01/18/17 02:18 01/18/17 02:18 01/18/17 02:18 - General Appearance General appearance: well-developed, well-nourished, obese, other (no distress) EENT: PERRL, mucous membranes moist, hearing intact, vision intact Neck: Present: neck supple, trachea midline Respiratory: Rales (faint) Heart: regular, S1S2 Gastrointestinal: Present: normoactive bowel sounds. Absent: tenderness, distended Integumentary: no rash, warm and dry Neurologic: no focal deficit, no asterixis, alert and oriented x3, CN 3-12 intact Musculoskeletal: Present: other (trace pedal edema) Psychiatric: mood/affect appropriate, cooperative Results - Lab Results 01/21/17 03:45 01/21/17 03:45 Most recent lab results Calcium 8.3 mg/dL (8.4-10.2) L 01/21/17 03:45 Assessment and Plan - Patient Problems (1) Acute kidney injury Current Visit: Yes Status: Acute Plan to address problem: Acute Kidney Injury superimposed on CKD in the setting of CHF and uncontrolled Hypertension. Creatinine is improving. Counseled to reduce salt in the diet. (2) Hypertensive urgency Current Visit: Yes Status: Acute Plan to address problem: BP is improving. (3) ROSALINA (obstructive sleep apnea) Current Visit: Yes Status: Chronic (4) CHF (congestive heart failure) Current Visit: Yes Status: Acute Qualifiers: Congestive heart failure type: C Congestive heart failure chronicity: C
[2017-01-21] MEDS: TYLENOL PO PRN (13:52)
[2017-01-21] MEDS ORDERED: CATAPRES PO SCH (15:00)
[2017-01-22] MEDS: HEPARIN SUB-Q SCH ×3 (06:18→22:26)
[2017-01-22] MEDS: APRESOLINE PO SCH ×3 (06:18→22:25)
--- NOTE | 2017-01-22 07:56 | Progress Note ---
Assessment and Plan - Patient Problems (1) Acute kidney injury Current Visit: Yes Status: Acute Plan to address problem: Continue half-normal saline. Nephrology consult in progress. Creatinine is 1.6. Continuing to improve daily (2) Hypertensive urgency Current Visit: Yes Status: Acute Plan to address problem: Blood pressure still not controlled. We will titrate blood pressure meds up. Continue to monitor blood pressure. Added IV hydralazine when necessary. May consider adding minoxidil (3) ROSALINA (obstructive sleep apnea) Current Visit: Yes Status: Chronic Plan to address problem: Continue CPAP at night History Interval history: Patient lying in bed state that he feels okay. No headaches, no chest pain Hospitalist Physical - Constitutional Vitals: Temp Pulse Resp BP Pulse Ox 98.4 F 83 18 174/105 99 01/22/17 04:00 01/22/17 04:00 01/22/17 04:00 01/22/17 04:00 01/22/17 04:00 General appearance: Present: no acute distress - EENT Eyes: Present: PERRL, EOM intact ENT: hearing intact, clear oral mucosa - Neck Neck: Present: supple, normal ROM - Respiratory Respiratory effort: normal Respiratory: bilateral: CTA - Cardiovascular Rhythm: regular Heart Sounds: Present: S1 & S2 - Abdominal General gastrointestinal: soft, non-tender, non-distended, normal bowel sounds - Psychiatric Psychiatric: appropriate mood/affect, intact judgment & insight - Neurologic Neurologic: CNII-XII intact, moves all extremities Results - Labs CBC & Chem 7: 01/21/17 03:45 01/21/17 03:45 Labs: Laboratory Last Values WBC 9.0 K/mm3 (4.5-11.0) 01/21/17 03:45 RBC 4.34 M/mm3 (3.65-5.03) 01/21/17 03:45 Hgb 12.6 gm/dl (11.8-15.2) 01/21/17 03:45 Hct 38.1 % (35.5-45.6) 01/21/17 03:45 MCV 88 fl (84-94) 01/21/17 03:45 MCH 29 pg (28-32) 01/21/17 03:45 MCHC 33 % (32-34) 01/21/17 03:45 RDW 12.9 % (13.2-15.2) L 01/21/17 03:45 Plt Count 270 K/mm3 (140-440) 01/21/17 03:45 Lymph % (Auto) 21.9 % (13.4-35.0) 01/21/17 03:45 [place] % (Auto) 9.5 % (0.0-7.3) H 01/21/17 03:45 Eos % (Auto) 2.8 % (0.0-4.3) 01/21/17 03:45 Baso % (Auto) 0.7 % (0.0-1.8) 01/21/17 03:45 Lymph # 2.0 K/mm3 (1.2-5.4) 01/21/17 03:45 [place] # 0.9 K/mm3 (0.0-0.8) H 01/21/17 03:45 Eos # 0.2 K/mm3 (0.0-0.4) 01/21/17 03:45 Baso # 0.1 K/mm3 (0.0-0.1) 01/21/17 03:45 Seg Neutrophils % 65.1 % (40.0-70.0) 01/21/17 03:45 Seg Neutrophils # 5.9 K/mm3 (1.8-7.7) 01/21/17 03:45 Sodium 141 mmol/L (137-145) 01/21/17 03:45 Potassium 4.0 mmol/L (3.6-5.0) 01/21/17 03:45 Chloride 101.6 mmol/L (98-107) 01/21/17 03:45 Carbon Dioxide 23 mmol/L (22-30) 01/21/17 03:45 Anion Gap 20 mmol/L 01/21/17 03:45 BUN 22 mg/dL (9-20) H 01/21/17 03:45 Creatinine 1.6 mg/dL (0.8-1.5) H 01/21/17 03:45 Estimated GFR > 60 ml/min 01/21/17 03:45 BUN/Creatinine Ratio 13.75 % 01/21/17 03:45 Glucose 103 mg/dL (75-100) H 01/21/17 03:45 POC Glucose 89 (70-105) 01/21/17 12:18 Calcium 8.3 mg/dL (8.4-10.2) L 01/21/17 03:45 Total Bilirubin 0.3 mg/dL (0.1-1.2) 01/21/17 03:45 AST 10 units/L (5-40) 01/21/17 03:45 ALT 11 units/L (7-56) 01/21/17 03:45 Alkaline Phosphatase 75 units/L (35-129) 01/21/17 03:45 Troponin T < 0.010 ng/mL (0.00-0.029) 01/18/17 02:29 NT-Pro-B Natriuret Pep 1940 pg/mL (0-450) H 01/18/17 02:29 Total Protein 6.4 g/dL (6.3-8.2) 01/21/17 03:45 Albumin 3.7 g/dL (3.9-5) L 01/21/17 03:45 Albumin/Globulin Ratio 1.4 % 01/21/17 03:45 Urine Color Yellow (Yellow) 01/18/17 06:33 Urine Turbidity Clear (Clear) 01/18/17 06:33 Urine pH 6.0 (5.0-7.0) 01/18/17 06:33 Ur Specific [place] 1.014 (1.003-1.030) 01/18/17 06:33 Urine Protein 100 mg/dl mg/dL (Negative) 01/18/17 06:33 Urine Glucose (UA) Neg mg/dL (Negative) 01/18/17 06:33 Urine Ketones Neg mg/dL (Negative) 01/18/17 06:33 Urine Blood Neg (Negative) 01/18/17 06:33 Urine Nitrite Neg (Negative) 01/18/17 06:33 Urine Bilirubin Neg (Negative) 01/18/17 06:33 Urine Urobilinogen < 2.0 mg/dL (<2.0) 01/18/17 06:33 Ur Leukocyte Esterase Neg (Negative) 01/18/17 06:33 Urine WBC (Auto) 1.0 /HPF (0.0-6.0) 01/18/17 06:33 Urine RBC (Auto) 1.0 /HPF (0.0-6.0) 01/18/17 06:33 U Epithel Cells (Auto) < 1.0 /HPF (0-13.0) 01/18/17 06:33 Urine Mucus 1+ /HPF 01/18/17 06:33
--- NOTE | 2017-01-22 08:08 | Progress Note ---
Assessment and Plan - Patient Problems (1) Acute kidney injury Current Visit: Yes Status: Acute Plan to address problem: Acute Kidney Injury superimposed on CKD in the setting of CHF and uncontrolled Hypertension. Creatinine is stable / improving. Low salt diet. (2) Hypertensive urgency Current Visit: Yes Status: Acute Plan to address problem: Increase Hydralazine to 100 mg TID. (3) ROSALINA (obstructive sleep apnea) Current Visit: Yes Status: Chronic (4) CHF (congestive heart failure) Current Visit: Yes Status: Chronic Qualifiers: Congestive heart failure type: C Congestive heart failure chronicity: C (5) Medical non-compliance Current Visit: Yes Status: Chronic Plan to address problem: Compliance encouraged. Subjective Date of service: 01/22/17 Interval history: Patient is doing ok. Objective - Vital Signs Vital signs: Vital Signs - 12hr 01/21/17 01/21/17 01/21/17 20:35 20:36 20:45 Temperature Pulse Rate Pulse Rate [ 87 89 Anterior Bilateral Throughout] Pulse Rate [ Right Radial] Respiratory Rate Respiratory 20 20 Rate [Anterior Bilateral Throughout] Blood Pressure Blood Pressure [Right Arm] O2 Sat by Pulse 98 Oximetry 01/21/17 01/21/17 01/21/17 21:25 21:26 21:27 Temperature Pulse Rate 90 90 90 Pulse Rate [ Anterior Bilateral Throughout] Pulse Rate [ Right Radial] Respiratory Rate Respiratory Rate [Anterior Bilateral Throughout] Blood Pressure 183/115 183/115 183/115 Blood Pressure [Right Arm] O2 Sat by Pulse Oximetry 01/21/17 01/22/17 01/22/17 23:27 00:30 04:00 Temperature 98.3 F 98.4 F Pulse Rate 74 80 Pulse Rate [ Anterior Bilateral Throughout] Pulse Rate [ 72 83 Right Radial] Respiratory 18 18 Rate Respiratory Rate [Anterior Bilateral Throughout] Blood Pressure 153/97 Blood Pressure 153/97 174/105 [Right Arm] O2 Sat by Pulse 99 99 99 Oximetry - General Appearance General appearance: well-developed, well-nourished, obese, other (no distress) EENT: PERRL, mucous membranes moist, hearing intact, vision intact Neck: no carotid bruit, supple Respiratory: Present: Clear to Ascultation Cardiology: regular, S1S2, no murmurs Gastrointestinal: normoactive bowel sounds, no tenderness, no distended, obese Integumentary: no rash, warm and dry Neurologic: no focal deficit, no asterixis, alert and oriented x3, CN 3-12 intact Musculoskeletal: other (trace pedal edema noted) Psychiatric: mood/affect appropriate, cooperative - Lab 01/21/17 03:45 01/21/17 03:45 Most recent lab results Calcium 8.3 mg/dL (8.4-10.2) L 01/21/17 03:45
[2017-01-22] MEDS: DUONEB 0.5 MG-3 MG/3 ML SOLN IH SCH ×3 (09:14→20:40)
[2017-01-22] MEDS ORDERED: APRESOLINE IV PRN (09:30)
[2017-01-22] MEDS: COREG PO SCH ×2 (09:59→22:25)
[2017-01-22] MEDS: CATAPRES PO SCH ×4 (10:00→22:25)
[2017-01-22] MEDS: NORVASC PO SCH (10:01)
[2017-01-22] MEDS: COZAAR PO SCH (10:02)
[2017-01-22] MEDS: LASIX PO SCH (13:50)
[2017-01-23] MEDS: HEPARIN SUB-Q SCH (05:52)
[2017-01-23 07:44] LABS: Basophils % (Auto) 0.4 % (0.0-1.8); Eosinophils % (Auto) 2.6 % (0.0-4.3); Hematocrit 38.7 % (35.5-45.6); Hemoglobin 12.5 gm/dl (11.8-15.2); Mean Corpuscular HGB Conc 32 % (32-34); Mean Corpuscular Hemoglobin 28 pg (28-32); Mean Corpuscular Volume 88 fl (84-94); Platelet Count 303 K/mm3 (140-440); Red Blood Count 4.41 M/mm3 (3.65-5.03); Red Cell Distribution Width 12.8 % (13.2-15.2); White Blood Count 9.9 K/mm3 (4.5-11.0)
[2017-01-23] MEDS: DUONEB 0.5 MG-3 MG/3 ML SOLN IH SCH (08:03)
[2017-01-23 08:17] LABS: Alanine Aminotransferase 14 units/L (7-56); Albumin 3.8 g/dL (3.9-5); Albumin/Globulin Ratio 1.3 %; Alkaline Phosphatase 66 units/L (35-129); Anion Gap 18 mmol/L; BUN/Creatinine Ratio 10.66; Bilirubin,Total 0.4 mg/dL (0.1-1.2); Blood Urea Nitrogen 16 mg/dL (9-20); Calcium 8.7 mg/dL (8.4-10.2); Carbon Dioxide 25 mmol/L (22-30); Glucose 99 mg/dL (75-100); Potassium 4.2 mmol/L (3.6-5.0); Sodium 141 mmol/L (137-145); Total Protein 6.7 g/dL (6.3-8.2)
[2017-01-23] MEDS: APRESOLINE PO SCH (08:44)
--- NOTE | 2017-01-23 08:48 | Progress Note ---
Assessment and Plan - Patient Problems (1) Acute kidney injury Current Visit: Yes Status: Acute (2) Hypertensive urgency Current Visit: Yes Status: Acute (3) ROSALINA (obstructive sleep apnea) Current Visit: Yes Status: Chronic (4) CHF (congestive heart failure) Current Visit: Yes Status: Chronic Qualifiers: Congestive heart failure type: C Congestive heart failure chronicity: C (5) Medical non-compliance Current Visit: Yes Status: Chronic Subjective Date of service: 01/23/17 Objective - Vital Signs Vital signs: Vital Signs - 12hr 01/22/17 01/22/17 01/22/17 21:18 22:00 22:24 Temperature 98.0 F Pulse Rate 82 Pulse Rate [ 82 Right Radial] Respiratory 18 Rate Blood Pressure 168/110 Blood Pressure 168/110 [Right Arm] O2 Sat by Pulse 97 99 Oximetry 01/22/17 01/23/17 01/23/17 22:25 00:05 04:00 Temperature 98.0 F Pulse Rate 70 Pulse Rate [ 75 Right Radial] Respiratory 22 Rate Blood Pressure 168/110 Blood Pressure 128/77 [Right Arm] O2 Sat by Pulse 95 Oximetry 01/23/17 01/23/17 06:31 08:01 Temperature 98.0 F Pulse Rate Pulse Rate [ 71 Right Radial] Respiratory 18 Rate Blood Pressure Blood Pressure 170/111 [Right Arm] O2 Sat by Pulse 98 99 Oximetry - Lab 01/23/17 07:08 01/23/17 07:08 Most recent lab results Calcium 8.7 mg/dL (8.4-10.2) 01/23/17 07:08
[2017-01-23] MEDS: LASIX PO SCH (09:12)
[2017-01-23] MEDS: NORVASC PO SCH (09:13)
[2017-01-23] MEDS: CATAPRES PO SCH ×2 (09:14)
[2017-01-23] MEDS: COREG PO SCH (09:15)
[2017-01-23] MEDS: COZAAR PO SCH (09:18)
[2017-01-23] MEDS ORDERED: COREG PO ONE (09:29)
--- NOTE | 2017-01-23 09:36 | Discharge Summary ---
Providers - Providers Date of Admission: 01/18/17 07:46 Date of discharge: 01/23/17 Attending physician: GLEN WALKER MD 01/20/17 18:35 Consult to Physician [CONS] Routine Consulting Provider: ERIKA BAUTISTA Reason For Exam: acute kidney injury Place consult to:: ERIKA BAUTISTA Notified:: Sudha NUNES Phone number called:: Was contact made?: Yes If yes, spoke with:: Dr. Bautista Time called:: 08:07 Primary care physician: [employer] Hospitalization Reason for admission: shortness of breath Condition: Stable Hospital course: 36-year-old moderately obese -Greek male history of hypertension and ROSALINA who has not taken any medication for at least several weeks, presents to the emergency room with complaints of severe headache and increasing shortness of breath. He was noted to be severely hypertensive the blood pressure of 250/ 170 he is now admitted for management of hypertensive emergency, He is otherwise awake and alert. Also complains of some chest tightness associated with shortness of breath. He says he has not been using CPAP machine, His blood pressure improved to around 190 systolic with IV medications and he was admitted to telemetry floor for further management. He says he had stress test at [facility] 4 months ago details not available at the time of my examination. Patient on admission was started on gentle hydration with improvement in the kidney injury. We did have a specific discussion with the patient about his blood pressure medications he stated that he could not afford them and did not take them for a few months. We did readjust his blood pressure medication I did recheck his blood pressure was 165/96 prior to discharge. He understands the need to monitor his blood pressure and documented tachycardia. Blood pressure diary. And to follow-up with his primary care physician. We have tried to adjust his medications to the $4 list above advised him of this also. We also discussed dietary compliance. Discharge diagnosis (1) Acute kidney injury (2) Hypertensive urgency (3) ROSALINA (obstructive sleep apnea) (4) CHF (congestive heart failure) (5) Medical non-compliance (6) mORBID OBESITY Disposition: DISCHARGED TO HOME OR SELFCARE Time spent for discharge: 35 MIN Core Measure Documentation - Palliative Care Palliative Care/ Comfort Measures: Not Applicable - Core Measures Any of the following diagnoses?: heart failure - VTE Discharge Requirements Deep Vein Thrombosis/Pulmonary Embolism Present on Admission: No - Heart Failure Discharge Requirements NATHAN/ARB for LVSD if EF <40%: Yes Beta ricky at discharge: Yes Exam - Physical Exam Narrative exam: VITAL SIGNS: Reviewed. GENERAL: The patient appeared well nourished and normally developed. morbidly obese. Vital signs as documented. HEAD: No signs of head trauma. EYES: Pupils are equal. Extraocular motions intact. EARS: Hearing grossly intact. MOUTH: Oropharynx is normal. NECK: No adenopathy, no JVD. CHEST: Chest with clear breath sounds bilaterally. No wheezes, rales, or rhonchi. CARDIAC: Regular rate and rhythm. S1 and S2, without murmurs, gallops, or rubs. VASCULAR: No Edema. Peripheral pulses normal and equal in all extremities. ABDOMEN: Soft, without detectable tenderness. No sign of distention. No rebound or guarding, and no masses palpated. Bowel Sounds normal. MUSCULOSKELETAL: Good range of motion of all major joints. Extremities without clubbing, cyanosis or edema. NEUROLOGIC EXAM: Alert and oriented x 3. No focal sensory or strength deficits. Speech normal. Follows commands. PSYCHIATRIC: Mood normal. SKIN: No rash or lesions. - Constitutional Vitals: Temp Pulse Resp BP Pulse Ox 98.0 F 72 18 174/113 99 01/23/17 06:31 01/23/17 09:18 01/23/17 06:31 01/23/17 09:18 01/23/17 08:01 Plan Activity: advance as tolerated, fall precautions Diet: low fat, low salt Special Instructions: record daily BP diary Additional Instructions: MUST FOLLOW WITH NEPRHOLOGIST. NEEDS BMP IN 3-4 DAYS. must be compliant with medications. Risk of non compliance discussed in detail, patient verbalized understanding. Follow up with: PRIMARY MD FELIPE [Primary Care Provider] - 3-5 Days ERIKA BAUTISTA MD [Staff Physician] - 7 Days SHADI DAVIS MD [Staff Physician] - 7 Days Prescriptions: Albuterol Sulfate [Proair Respiclick] 90 mcg IH QID #1 aer.pow.ba amLODIPine [Norvasc] 10 mg PO DAILY #30 tablet Budesoni/Formotero 160-4.5(Nf) [Symbicort 160-4.5 (Nf)] 2 puff IH BID #1 inha Carvedilol [Coreg] 25 mg PO BID #60 tablet Clonidine HCl [Catapres] 0.3 mg PO TID #90 tablet Furosemide [Lasix TAB] 40 mg PO BID #60 tablet hydrALAZINE [Apresoline TAB] 100 mg PO TID #90 tab Losartan [Cozaar] 100 mg PO DAILY #30 tablet NIFEdipine [Nifedipine ER] 60 mg PO BID #60 tab.er.24 Potassium Chloride [K-Dur] 10 meq PO BID #60 tablet
[2017-01-23 10:52] VITALS: BP 171/109
== END 2017-01-23 11:55 | disposition home or self-care (01) | DRG 292 ==
LOC: ED 02:02 → 4A 07:46
PROVIDERS: ADMIT Internal Medicine; ATTEND Internal Medicine
DX: I13.0 Hypertensive heart and chronic kidney disease with heart failure and stage 1 through stage 4 chronic kidney disease, or unspecified chronic kidney disease (principal); N17.9 Acute kidney failure, unspecified; Z68.42 Body mass index [BMI] 45.0-49.9, adult; I50.20 Unspecified systolic (congestive) heart failure; I42.0 Dilated cardiomyopathy; N18.2 Chronic kidney disease, stage 2 (mild); G47.33 Obstructive sleep apnea (adult) (pediatric); I16.0 Hypertensive urgency; E66.01 Morbid (severe) obesity due to excess calories; D72.829 Elevated white blood cell count, unspecified; R51 Headache; Z91.14 Patient's other noncompliance with medication regimen; Z83.3 Family history of diabetes mellitus; Z82.49 Family history of ischemic heart disease and other diseases of the circulatory system
CPT/HCPCS: 36415; 70450; 71020; 80048; 80053; 81001; 82962; 83880; 84484; 85025; 85027; 87400; 90686; 90732; 93005; 93010; 94640; 94660; 94760; 96374; 96375; 99406; J0360; J1644; J1940; J2930

== ENCOUNTER 2017-05-09 08:58 | Emergency (ER) | payer OTHER ==
[2017-05-09 11:05] LABS: Basophils % (Auto) 0.9 % (0.0-1.8); Eosinophils % (Auto) 3.5 % (0.0-4.3); Hematocrit 41.8 % (35.5-45.6); Mean Corpuscular HGB Conc 34 % (32-34); Mean Corpuscular Hemoglobin 29 pg (28-32); Mean Corpuscular Volume 87 fl (84-94); Platelet Count 231 K/mm3 (140-440); Red Blood Count 4.83 M/mm3 (3.65-5.03); Red Cell Distribution Width 12.9 % (13.2-15.2); White Blood Count 7.9 K/mm3 (4.5-11.0)
[2017-05-09] MEDS ORDERED: CATAPRES PO ONE ×2 (11:22→19:05)
--- NOTE | 2017-05-09 11:35 | Emergency Department Report ---
ED General Adult HPI - General Chief complaint: Medical Clearance Stated complaint: LIFE VEST BATTERY LOW Time Seen by Provider: 05/09/17 09:56 Source: patient, EMS Mode of arrival: Stretcher Limitations: No Limitations - History of Present Illness Initial comments: Chief complaint: Medial battery for LifeVest HPI: 36-year-old male with a past medical history of ROSALINA, CHF, hypertension, and asthma presents to the hospital from nursing home needing a new life as battery. Batteries at 50% and then was unable to provide a replacement battery. Patient received his blood pressure medication prior to arrival however, I suspect that the list provided by the nursing home is incomplete Mode of arrival: [law enforcement] Source: [Patient] Began: Noticed to be 50% today Duration: Continuous Context: History of low ejection fracture patient is scheduled to wear LifeVest for 6-8 months Quality: Painless Severity: Painless Improved with: N/A Worsened with: N/A Associated signs and symptoms: Patient states he had a headache that has since resolved. He denies any chest pain or shortness of breath or edema. He has been compliant with his medications up until has been provided by think he has clonidine dose is lower than usual given that the pill is smaller. Severity scale (0 -10): 5 - Related Data Previous Rx's Medication Instructions Recorded Last Taken Type Albuterol Sulfate [Proair 90 mcg IH QID #1 aer.pow.ba 05/09/17 Unknown Rx Respiclick] Budesoni/Formotero 160-4.5(Nf) 2 puff IH BID #1 inha 05/09/17 Unknown Rx [Symbicort 160-4.5 (Nf)] Carvedilol [Coreg] 25 mg PO BID #60 tablet 05/09/17 Unknown Rx Clonidine HCl [Catapres] 0.3 mg PO TID #90 tablet 05/09/17 Unknown Rx Furosemide [Lasix TAB] 40 mg PO BID #60 tablet 05/09/17 Unknown Rx Losartan [Cozaar] 100 mg PO DAILY #30 tablet 05/09/17 Unknown Rx NIFEdipine [Nifedipine ER] 60 mg PO BID #60 tab.er.24 05/09/17 Unknown Rx Potassium Chloride [K-Dur] 10 meq PO BID #60 tablet 05/09/17 Unknown Rx amLODIPine [Norvasc] 10 mg PO DAILY #30 tablet 05/09/17 Unknown Rx hydrALAZINE [Apresoline TAB] 100 mg PO TID #90 tab 05/09/17 Unknown Rx Allergies Allergy/AdvReac Type Severity Reaction Status Date / Time No Known Allergies Allergy Verified 07/05/14 23:11 ED Review of Systems ROS: Stated complaint: LIFE VEST BATTERY LOW Other details as noted in HPI Comment: All other systems reviewed and negative Other: Constitutional: No fevers chills Eyes: No eye pain visual changes ENT: No ear pain or throat pain Neck: Denies pain Respiratory: Denies cough wheezing shortness of breath Cardiovascular: Denies chest pain, palpitations, syncope GI: Denies abdominal pain, nausea, vomiting, diarrhea : Denies dysuria Musculoskeletal: Denies back pain Skin: Denies rash, lesions, erythema Neurologic: Denies numbness, weakness Psychiatric: Denies suicidal ideation, hallucinations ED Past Medical Hx - Past Medical History Previous Medical History?: Yes Hx Hypertension: Yes Hx Congestive Heart Failure: Yes Hx Asthma: Yes - Surgical History Past Surgical History?: No - Social History Smoking Status: Never Smoker Substance Use Type: None - Medications Home Medications: Home Medications Medication Instructions Recorded Confirmed Last Taken Type Albuterol Sulfate [Proair 90 mcg IH QID #1 aer.pow.ba 05/09/17 Unknown Rx Respiclick] Budesoni/Formotero 160-4.5(Nf) 2 puff IH BID #1 inha 05/09/17 Unknown Rx [Symbicort 160-4.5 (Nf)] Carvedilol [Coreg] 25 mg PO BID #60 tablet 05/09/17 Unknown Rx Clonidine HCl [Catapres] 0.3 mg PO TID #90 tablet 05/09/17 Unknown Rx Furosemide [Lasix TAB] 40 mg PO BID #60 tablet 05/09/17 Unknown Rx Losartan [Cozaar] 100 mg PO DAILY #30 tablet 05/09/17 Unknown Rx NIFEdipine [Nifedipine ER] 60 mg PO BID #60 tab.er.24 05/09/17 Unknown Rx Potassium Chloride [K-Dur] 10 meq PO BID #60 tablet 05/09/17 Unknown Rx amLODIPine [Norvasc] 10 mg PO DAILY #30 tablet 05/09/17 Unknown Rx hydrALAZINE [Apresoline TAB] 100 mg PO TID #90 tab 05/09/17 Unknown Rx ED Physical Exam - General Limitations: No Limitations - Other Other exam information: General: No limitations, patient is alert in no acute distress Head exam: Atraumatic, normocephalic Eyes exam: Normal appearance ENT: Moist mucous membrane, normal oropharynx Neck exam: Normal inspection, full range of motion Respiratory exam: Clear to auscultation bilateral, no wheezes, rales, crackles Cardiovascular: Normal rate and rhythm, normal heart sounds Abdomen: Soft, nondistended, and nontender, with normal bowel sounds, no rebound, or guarding Extremity: Full range of motion normal inspection no deformity Back: Normal Inspection, full range of motion, no tenderness Neurologic: Alert, oriented x3, cranial nerves intact, no motor or sensory deficit Psychiatric: normal affect, normal mood Skin: Warm, dry, intact ED Course Vital Signs 05/09/17 05/09/17 05/09/17 09:20 09:30 10:00 Temperature 98.6 F Pulse Rate 78 78 69 Respiratory 18 20 20 Rate Blood Pressure 182/148 177/136 Blood Pressure 192/120 [Left] Blood Pressure [Right] O2 Sat by Pulse 98 96 95 Oximetry 05/09/17 05/09/17 05/09/17 10:30 11:00 11:30 Temperature Pulse Rate 67 74 Respiratory 18 15 Rate Blood Pressure 197/137 201/155 201/158 Blood Pressure [Left] Blood Pressure [Right] O2 Sat by Pulse 97 96 98 Oximetry 05/09/17 05/09/17 05/09/17 11:37 12:00 13:00 Temperature Pulse Rate 74 64 72 Respiratory 16 Rate Blood Pressure 201/155 178/138 Blood Pressure 169/128 [Left] Blood Pressure [Right] O2 Sat by Pulse 99 Oximetry 05/09/17 05/09/17 05/09/17 13:45 14:30 15:00 Temperature Pulse Rate 71 83 73 Respiratory 20 Rate Blood Pressure 173/138 Blood Pressure 173/120 163/117 [Left] Blood Pressure [Right] O2 Sat by Pulse 97 Oximetry 05/09/17 05/09/17 05/09/17 15:09 15:30 15:33 Temperature Pulse Rate 77 69 85 Respiratory 16 15 25 H Rate Blood Pressure Blood Pressure 163/117 172/137 [Left] Blood Pressure [Right] O2 Sat by Pulse 99 95 97 Oximetry 05/09/17 05/09/17 05/09/17 16:00 16:17 16:47 Temperature Pulse Rate 59 L Respiratory 19 Rate Blood Pressure Blood Pressure [Left] Blood Pressure 190/140 182/136 [Right] O2 Sat by Pulse 92 Oximetry 05/09/17 05/09/17 05/09/17 17:00 17:21 17:22 Temperature Pulse Rate 73 82 82 Respiratory 20 Rate Blood Pressure 186/145 184/146 184/146 Blood Pressure [Left] Blood Pressure [Right] O2 Sat by Pulse 97 Oximetry 05/09/17 18:42 Temperature Pulse Rate 93 H Respiratory Rate Blood Pressure 197/122 Blood Pressure [Left] Blood Pressure [Right] O2 Sat by Pulse Oximetry - Reevaluation(s) Reevaluation #1: 05/09/17 11:34 Maria De Jesus the charge nurse discussed case with the [employer] and they will bring a replacement battery to the ED. 2 hours after receiving his blood pressure medication doses blood pressure is increased and therefore clonidine 0.2 mg ordered. Labs pending to evaluate kidney function secondary to uncontrolled hypertension ED Medical Decision Making - Lab Data Result diagrams: 05/09/17 10:51 05/09/17 10:51 Lab Results 05/09/17 05/09/17 Range/Units 10:51 10:51 WBC 7.9 (4.5-11.0) K/mm3 RBC 4.83 (3.65-5.03) M/mm3 Hgb 14.0 (11.8-15.2) gm/dl Hct 41.8 (35.5-45.6) % MCV 87 (84-94) fl MCH 29 (28-32) pg MCHC 34 (32-34) % RDW 12.9 L (13.2-15.2) % Plt Count 231 (140-440) K/mm3 Lymph % (Auto) 18.2 (13.4-35.0) % [place] % (Auto) 6.8 (0.0-7.3) % Eos % (Auto) 3.5 (0.0-4.3) % Baso % (Auto) 0.9 (0.0-1.8) % Lymph # 1.4 (1.2-5.4) K/mm3 [place] # 0.5 (0.0-0.8) K/mm3 Eos # 0.3 (0.0-0.4) K/mm3 Baso # 0.1 (0.0-0.1) K/mm3 Seg Neutrophils % 70.6 H (40.0-70.0) % Seg Neutrophils # 5.6 (1.8-7.7) K/mm3 Sodium 139 (137-145) mmol/L Potassium 3.7 (3.6-5.0) mmol/L Chloride 98.6 (98-107) mmol/L Carbon Dioxide 26 (22-30) mmol/L Anion Gap 18 mmol/L BUN 16 (9-20) mg/dL Creatinine 1.7 H (0.8-1.5) mg/dL Estimated GFR 56 ml/min BUN/Creatinine Ratio 9.41 % Glucose 103 H (75-100) mg/dL Calcium 9.3 (8.4-10.2) mg/dL - Medical Decision Making Patient waiting in the ER all day to receive battery pack. During this time he received multiple doses of oral medications without significant improvement in his blood pressure. I suspect the patient is being undertreated at the nursing home since on recent admissions patient has required a lot more blood pressure medications than what is listed by the nursing home. Case discussed with Dr. Craig hospitalist. Plan is to admit patient and blood pressure does not improve - Differential Diagnosis hypertensive urgency/emergencies, replacement battery needed Critical Care Time: No Critical care attestation.: If time is entered above; I have spent that time in minutes in the direct care of this critically ill patient, excluding procedure time. ED Disposition Clinical Impression: Hypertensive urgency, Cardiomyopathy Disposition: OP ADMIT IP TO THIS HOSP Is pt being admited?: Yes Condition: Stable Prescriptions: Albuterol Sulfate [Proair Respiclick] 90 mcg IH QID #1 aer.pow.ba amLODIPine [Norvasc] 10 mg PO DAILY #30 tablet Budesoni/Formotero 160-4.5(Nf) [Symbicort 160-4.5 (Nf)] 2 puff IH BID #1 inha Carvedilol [Coreg] 25 mg PO BID #60 tablet Clonidine HCl [Catapres] 0.3 mg PO TID #90 tablet Furosemide [Lasix TAB] 40 mg PO BID #60 tablet hydrALAZINE [Apresoline TAB] 100 mg PO TID #90 tab Losartan [Cozaar] 100 mg PO DAILY #30 tablet NIFEdipine [Nifedipine ER] 60 mg PO BID #60 tab.er.24 Potassium Chloride [K-Dur] 10 meq PO BID #60 tablet Time of Disposition: 19:37 (DR Craig/hosp)
[2017-05-09 11:48] LABS: BUN/Creatinine Ratio 9.41; Calcium 9.3 mg/dL (8.4-10.2); Chloride 98.6 mmol/L (98-107); Potassium 3.7 mmol/L (3.6-5.0)
[2017-05-09] MEDS ORDERED: APRESOLINE PO ONE (13:32)
--- NOTE | 2017-05-09 15:56 | Admit Criteria Form ---
Admission Criteria Documentation: HYPERTENSION Clinical Indications for Admission to Inpatient Care ( Place "X" for any and all applicable criteria): Admission is indicated for ANY ONE of the following(1)(2)(3)(4): [ ]I. Hypertensive emergency, with evidence of acute and progressing target organ disease as indicated by ANY ONE of the following: [ ]a) Hypertensive encephalopathy (eg, confusion, altered mental status) [ ]b) Cerebral infarction [ ]c) Intracranial hemorrhage [ ]d) Myocardial ischemia or infarction [ ]e) Pulmonary edema [ ]f) Aortic dissection [ ]g) Seizure [ ]h) Acute renal insufficiency [ ]i) Papilledema [ ]j) Microangiopathic hemolytic anemia [ ]II. Adrenergic crisis (eg, severe hypertension due to pheochromocytoma crisis, cocaine or amphetamine intoxication, or clonidine withdrawal) [ X]III. Severe hypertension (SBP greater than 180 mmHg or DBP greater than 110 mmHg or greater than the 95th percentile for age, gender, and height in pediatric patients) that cannot be controlled (eg, to SBP less than 160 mmHg and DBP less than 100 mmHg in adults) by treatment with oral medication in emergency department or observation care Extended stay beyond goal length of stay may be needed for(11)(12)(13): [ ]a) Persistent hypertensive encephalopathy [ ]b) Continuation of pulmonary edema [ ]c) Recurring or persistent severe hypertension [ ]d) Target organ damage (eg, angina, stroke, aortic dissection) [ ]e) Associated renal insufficiency The original [employer] content created by [employer] has been revised. The portions of the content which have been revised are identified through the use of italic text or in bold, and [facility] has neither reviewed nor approved the modified material. All other unmodified content is copyright [facility] [employer]. Please see references footnoted in the original [employer] [facility] edition 2016 Admission Criteria Met: Yes
--- NOTE | 2017-05-09 16:35 | Consultation ---
History of Present Illness - Reason for Consult Consult date: 05/09/17 Requesting physician: KAYLA COPELAND - History of Present Illness 36 YO Male with MO, CHF with life vest in place, ROSALINA, HTN, Asthma, Medication Noncompliance presents to ED for evaluation. Pt states that the battery in his life vest is low. Pt seen and evaluated in ED and found to have uncontrolled HTN. Pt resumed [place] prehospital medication. Pt informed of increased risk of , and worsening symptoms if he continues with medication noncompliance. Pt ackknowledges understanding instructions. Past History Past Medical History: heart failure, hypertension Past Surgical History: No surgical history, Other (reviewed) Social history: , lives with family. denies: smoking, alcohol abuse, prescription drug abuse, IV drug use Family history: CAD, hypertension Medications and Allergies Allergies Allergy/AdvReac Type Severity Reaction Status Date / Time No Known Allergies Allergy Verified 07/05/14 23:11 Home Medications Medication Instructions Recorded Confirmed Last Taken Type Albuterol Sulfate [Proair 90 mcg IH QID #1 aer.[id number] 05/09/17 Unknown Rx Respiclick] Budesoni/Formotero 160-4.5(Nf) 2 puff IH BID #1 inha 05/09/17 Unknown Rx [Symbicort 160-4.5 (Nf)] Carvedilol [Coreg] 25 mg PO BID #60 tablet 05/09/17 Unknown Rx Clonidine HCl [Catapres] 0.3 mg PO TID #90 tablet 05/09/17 Unknown Rx Furosemide [Lasix TAB] 40 mg PO BID #60 tablet 05/09/17 Unknown Rx Losartan [Cozaar] 100 mg PO DAILY #30 tablet 05/09/17 Unknown Rx NIFEdipine [Nifedipine ER] 60 mg PO BID #60 tab.er.[id number] 05/09/17 Unknown Rx Potassium Chloride [K-Dur] 10 meq PO BID #60 tablet 05/09/17 Unknown Rx amLODIPine [Norvasc] 10 mg PO DAILY #30 tablet 05/09/17 Unknown Rx hydrALAZINE [Apresoline TAB] 100 mg PO TID #90 tab 05/09/17 Unknown Rx Active Meds: Active Medications Hydralazine HCl (Apresoline) 20 mg IV ONCE ONE Stop: 05/09/17 16:34 Review of Systems All systems: negative (life vest battery low,) Constitutional: other Exam - Constitutional Vitals: Temp Pulse Resp BP Pulse Ox 98.6 F 69 15 190/140 95 05/09/17 09:20 05/09/17 15:30 05/09/17 15:30 05/09/17 16:17 05/09/17 15:30 General appearance: Present: mild distress - EENT Eyes: Present: PERRL ENT: hearing intact, clear oral mucosa - Neck Neck: Present: supple, normal ROM - Respiratory Respiratory effort: normal Respiratory: bilateral: CTA - Cardiovascular Heart Sounds: Present: S1 & S2. Absent: rub, click - Extremities Extremities: pulses symmetrical, No edema Peripheral Pulses: within normal limits - Abdominal General gastrointestinal: Present: soft, non-tender, non-distended, normal bowel sounds Male genitourinary: Present: normal - Integumentary Integumentary: Present: clear, warm, dry - Musculoskeletal Musculoskeletal: gait normal, strength equal bilaterally - Psychiatric Psychiatric: appropriate mood/affect, intact judgment & insight - Neurologic Neurologic: CNII-XII intact, moves all extremities Results - Labs CBC & Chem 7: 05/09/17 10:51 05/09/17 10:51 Labs: Abnormal lab results 05/09/17 05/09/17 Range/Units 10:51 10:51 RDW 12.9 L (13.2-15.2) % Seg Neutrophils % 70.6 H (40.0-70.0) % Creatinine 1.7 H (0.8-1.5) mg/dL Glucose 103 H (75-100) mg/dL Assessment and Plan - Patient Problems (1) Uncontrolled hypertension Status: Acute Plan to address problem: Pt resumed on prehospital medication. Pt counseled, Systolic bp in the 150's. Pt discharged and instructed to f/u pcp 1wk for medication reconciliation, and to maintain blood pressure log 3times daily. (2) Cardiomyopathy Status: Acute Qualifiers: Cardiomyopathy type: C Plan to address problem: Life Vest battery replaced. (3) Medical non-compliance Status: Chronic Plan to address problem: Pt counseled, acknowledges understanding.
[2017-05-09] MEDS ORDERED: NORVASC PO ONE ×2 (16:57→17:00)
[2017-05-09] MEDS ORDERED: COZAAR PO ONE (16:57)
[2017-05-09] MEDS ORDERED: LASIX IV ONE (16:57)
[2017-05-09] MEDS ORDERED: APRESOLINE IV ONE ×3 (17:00→20:00)
[2017-05-09] MEDS ORDERED: DUONEB 0.5 MG-3 MG/3 ML SOLN IH ONE (18:14)
[2017-05-09] MEDS ORDERED: TYLENOL PO ONE (19:05)
[2017-05-09 20:22] VITALS: BP 153/90
== END 2017-05-09 20:52 | disposition admitted as inpatient to this hospital (09) ==
LOC: ED 08:58
DX: I16.0 Hypertensive urgency (principal); I42.9 Cardiomyopathy, unspecified; I50.9 Heart failure, unspecified; I10 Essential (primary) hypertension; J45.909 Unspecified asthma, uncomplicated
CPT/HCPCS: 36415; 80048; 85025; 94640; 96374; 96375; 96376; 99285; J0360; J1940